=== PATIENT | male | born 1995 | race Asian ===

== ENCOUNTER 2021-02-11 13:55 | Inpatient (IN) | payer OTHER, BC ==
[~2021-02-11] VITALS: Ht 167.6 cm; Wt 102.8 kg
[2021-02-11 14:25] LABS: CLARITY,URINE CLEAR (Clear); GLUCOSE, URINE >=1000 mg/dl (Neg); KETONES,URINE >=80 mg/dl (Neg); LEUKOCYTE ESTERASE ,URINE NEGATIVE (Neg); NITRITES, URINE NEGATIVE (Neg); OCCULT BLOOD,URINE SMALL (Neg); PROTEIN,URINE 100 mg/dl (Neg); UROBILINOGEN,URINE 0.2 E.U/dL (0.2-1.0)
[2021-02-11 14:30] LABS: BASOPHILS # (AUTO) 0.1 X10'3 (0-0.2); BASOPHILS % (AUTO) 0.9 % (0-1); EOSINOPHILS # (AUTO) 0.1 X10'3 (0-0.9); EOSINOPHILS % (AUTO) 0.5 % (0-6); HEMATOCRIT 49.7 % (42.0-52.0); HEMOGLOBIN 17.4 g/dl (14.0-17.9); LYMPHOCYTES # (AUTO) 2.2 X10'3 (1.1-4.8); MEAN CORPUSCULAR HGB CONC 34.9 g/dL (33.0-36.5); MEAN PLATELET VOLUME 11.4 FL (7.4-10.4); MONOCYTES # (AUTO) 0.8 X10'3 (0-0.9); MONOCYTES % (AUTO) 7.1 % (2-12); NEUTROPHILS % (AUTO) 71.5 % (42-75); PLATELET COUNT 278 X10'3 (140-440); RED CELL DISTRIBUTION WIDTH 12.8 % (11.5-14.5); WHITE BLOOD COUNT 11.2 X10'3 (4.5-11.0)
[2021-02-11 14:34] LABS: COLOR,URINE STRAW (Yellow); UA COLLECTION TYPE CLN CATCH MIDSTREAM
[2021-02-11 14:38] LABS: ALBUMIN 3.7 G/DL (3.4-5.0); ALKALINE PHOSPHATASE 136 IU/L (46-116); ANION GAP 24 (8-16); BILIRUBIN,TOTAL 0.9 MG/DL (0.1-1.0); BLOOD UREA NITROGEN 14 MG/DL (7-18); BUN/CREATININE RATIO 10.1 (5.4-32.0); CALCIUM 9.3 MG/DL (8.5-10.1); CHLORIDE 87 MMOL/L (99-107); CREATININE 1.38 MG/DL (0.60-1.10); LIPASE 118 U/L (73-393); SODIUM 123 MMOL/L (135-145); eGFR 64 ML/MIN
[2021-02-11 14:41] LABS: BACTERIA,URINE FEW /HPF (Neg); RBC,URINE 0-2 /HPF (0-2); SQUAMOUS EPITHELIAL CELL,UR NONE SEEN /LPF (FEW); WBC,URINE 0-4 /HPF (0-4)
[2021-02-11 14:42] LABS: ALBUMIN/GLOBULIN RATIO 0.6 (1.1-1.5); POTASSIUM 4.5 MMOL/L (3.5-5.1); TOTAL PROTEIN 9.6 G/DL (6.4-8.2)
[2021-02-11 14:46] LABS: GLUCOSE 487 MG/DL (70-104); TOTAL CARBON DIOXIDE 12.4 MMOL/L (24-32)
[2021-02-11 15:07] LABS: LARGE PLATELETS FEW; PLATELET ESTIMATE NORMAL
[2021-02-11] MEDS ORDERED: normal saline 1000ml 1,000 ML IV ONE ×2 (15:10)
[2021-02-11 15:15] LABS: ABG BASE EXCESS -15.9 mmol/L (-2.0-2.0); ABG HCO3 8.3 mmol/L (22.0-26.0); ABG OXYGEN SATURATION 97.9 % (94-97); ABG PCO2 (T) 18.9 mmHg (35.0-48.0); ABG PO2 (T) 109.9 mmHg (75.0-100.0); ALLEN'S TEST POSITIVE; FCOHb 0.3 % (0.0-3.9); FMetHb 0.4 % (0.0-1.5); FO2Hb 97.2 % (94-97); TOTAL HEMOGLOBIN 17.8 G/dl (14.0-18.0)
[2021-02-11] MEDS ORDERED: Neutra Phos packet PO PRN ×2 (15:20→22:00)
[2021-02-11] MEDS ORDERED: sodium phosphate inj. 15 MMOL in dextrose 5%-water 250 ML IV PRN ×2 (15:20→22:00)
[2021-02-11] MEDS ORDERED: sodium bicarbonate (8.4%) inj. 100 MEQ in dextrose 5% water 500ml 500 ML IV PRN (15:20)
[2021-02-11] MEDS ORDERED: potassium Cl 20 mEq SR tablet PO PRN ×4 (15:20→16:30)
[2021-02-11] MEDS ORDERED: sodium bicarbonate (8.4%) inj. 50 MEQ in dextrose 5% water 500ml 250 ML IV PRN (15:20)
[2021-02-11] MEDS ORDERED: sodium phosphate inj. 30 MMOL in dextrose 5%-water 250 ML IV PRN ×2 (15:20→22:00)
[2021-02-11] MEDS ORDERED: insulin regular, human 10 units/0.1 ml syringe IV PRN (15:20)
[2021-02-11] MEDS ORDERED: potassium Cl 40MEQ/1/2NS 520ml 520 ML IV PRN ×2 (15:20)
[2021-02-11] MEDS ORDERED: NO HOME MEDS (16:01)
[2021-02-11 16:06] LABS: HEMOGLOBIN A1C 10.9 % (4.5-6.2)
[2021-02-11] MEDS: Insulin Reg/NS 100units/100mL 100 ML IV SCH (16:09)
[2021-02-11] MEDS: normal saline 1000ml 1,000 ML IV SCH ×3 (16:12→23:20)
[2021-02-11 16:20] LABS: ALANINE AMINOTRANSFERASE 106 U/L (12-78); ASPARTATE AMINO TRANSFERASE 46 U/L (10-37)
[2021-02-11] MEDS ORDERED: morphine 2 MG/ML inj. syringe IV PRN ×2 (16:30)
[2021-02-11] MEDS ORDERED: magnesium Cl slow-release 64mg tablet PO PRN (16:30)
[2021-02-11] MEDS ORDERED: magnesium hydroxide 30ml (MOM) UD suspension PO PRN (16:30)
[2021-02-11] MEDS ORDERED: diphenhydrAMINE 25mg capsule PO PRN (16:30)
[2021-02-11] MEDS ORDERED: bisacodyl 10mg suppository rectal RC PRN (16:30)
[2021-02-11] MEDS ORDERED: mag hydrox/Alum hydrox/simeth 30ml oral suspension PO PRN (16:30)
[2021-02-11] MEDS ORDERED: magnesium 4gm in 100ml NS 100 ML IV PRN (16:30)
[2021-02-11] MEDS ORDERED: acetaminophen 325mg tablet PO PRN ×2 (16:30)
[2021-02-11] MEDS ORDERED: magnesium 2GM in 50ml NS 50 ML IV PRN (16:30)
[2021-02-11] MEDS ORDERED: HYDROcodone/acetaminophen 5mg/325mg tablet PO PRN (16:30)
[2021-02-11 17:19] LABS: PHOSPHORUS 3.2 MG/DL (2.3-4.5)
--- NOTE | 2021-02-11 17:34 | NUR ---
paged Dr. Guardado regarding patient's bg 371mg/dl.
--- NOTE | 2021-02-11 17:45 | NUR ---
sTILL OK TO GIVE 10 UNITS IV OF REGULAR INSULIN PER DR. SYED.
[2021-02-11] MEDS ORDERED: lisinopril 20mg tablet PO STA (17:58)
--- NOTE | 2021-02-11 17:59 | NUR ---
PATIENT HYPERTENSIVE DR. SYED AT BEDSIDE,ORDERED LISINOPRIL 20MG , FIRST DOSE NOW.
[2021-02-11] MEDS: potassium CL 20mEq in D5-1/2NS 1,000 ML IV PRN (19:22)
[2021-02-11 19:49] LABS: URINE AMPHETAMINE SCREEN NEGATIVE (Neg); URINE BARBITUATE SCREEN NEGATIVE (Neg); URINE BENZODIAZEPINES SCREEN NEGATIVE (Neg); URINE CANNABINOID SCREEN NEGATIVE (Neg); URINE COCAINE SCREEN NEGATIVE (Neg); URINE METHADONE SCREEN NEGATIVE (Neg); URINE OPIATE SCREEN NEGATIVE (Neg); URINE PHENCYCLIDINE SCREEN NEGATIVE (Neg)
[2021-02-11] MEDS: K and/or MAG REPLACEMENT MC SCH (20:00)
[2021-02-11] MEDS ORDERED: K and/or MAG REPLACEMENT MC SCH (20:00)
[2021-02-11 20:21] LABS: ALBUMIN 3.1 G/DL (3.4-5.0); ALBUMIN/GLOBULIN RATIO 0.7 (1.1-1.5); ALKALINE PHOSPHATASE 111 IU/L (46-116); BILIRUBIN,TOTAL 0.6 MG/DL (0.1-1.0); BLOOD UREA NITROGEN 10 MG/DL (7-18); BUN/CREATININE RATIO 8.7 (5.4-32.0); CALCIUM 7.8 MG/DL (8.5-10.1); CREATININE 1.15 MG/DL (0.60-1.10); TOTAL PROTEIN 7.8 G/DL (6.4-8.2); eGFR 79 ML/MIN
[2021-02-11 20:58] LABS: ALANINE AMINOTRANSFERASE 92 U/L (12-78); ANION GAP 22 (8-16); ASPARTATE AMINO TRANSFERASE 35 U/L (10-37); CHLORIDE 99 MMOL/L (99-107); GLUCOSE 230 MG/DL (70-104); PHOSPHORUS 2.2 MG/DL (2.3-4.5); SODIUM 133 MMOL/L (135-145)
[2021-02-11 20:59] LABS: POTASSIUM 3.6 MMOL/L (3.5-5.1)
[2021-02-11 21:03] LABS: TOTAL CARBON DIOXIDE 12.2 MMOL/L (24-32)
[2021-02-11] MEDS ORDERED: NORepinephrine inj. 8 MG in dextrose 5%-water 242 ML IV SCH (21:25)
[2021-02-11] MEDS ORDERED: NORepinephrine 8mg/ 250ml NS 250 ML IV SCH (21:30)
--- NOTE | 2021-02-11 21:45 | NUR ---
DR HORVATH IN PT'S ROOM AFTER I REPORTED PT'S LOW BP. DR HORVATH GAVE VERBAL ORDER FOR LEVOPHED WITH A GOAL OF 100/60.
[2021-02-11 22:16] LABS: CREATINE KINASE 103 U/L (39-308)
[2021-02-11] MEDS: ondansetron/PF 4mg/2ml inj IV PRN (22:28)
--- NOTE | 2021-02-11 22:33 | NUR ---
pt became nauseas. pt medicated.
[2021-02-11] MEDS: docusate sod 100mg capsule PO SCH (23:29)
[2021-02-11] MEDS: heparin, porcine 5000 units/ml vial SQ SCH (23:31)
[2021-02-12 00:47] LABS: ALBUMIN 2.1 G/DL (3.4-5.0); ALBUMIN/GLOBULIN RATIO 0.7 (1.1-1.5); ALKALINE PHOSPHATASE 74 IU/L (46-116); BILIRUBIN,TOTAL 0.5 MG/DL (0.1-1.0); BLOOD UREA NITROGEN 12 MG/DL (7-18); BUN/CREATININE RATIO 10.3 (5.4-32.0); CREATININE 1.17 MG/DL (0.60-1.10); GLUCOSE 293 MG/DL (70-104); TOTAL PROTEIN 5.3 G/DL (6.4-8.2); eGFR 77 ML/MIN
[2021-02-12 01:15] LABS: ALANINE AMINOTRANSFERASE 57 U/L (12-78); ANION GAP 19 (8-16); ASPARTATE AMINO TRANSFERASE 22 U/L (10-37); CHLORIDE 109 MMOL/L (99-107); SODIUM 138 MMOL/L (135-145)
[2021-02-12 01:20] LABS: POTASSIUM 2.9 MMOL/L (3.5-5.1); TOTAL CARBON DIOXIDE 9.9 MMOL/L (24-32)
[2021-02-12 01:21] LABS: CALCIUM 5.8 MG/DL (8.5-10.1)
--- NOTE | 2021-02-12 01:39 | NUR ---
CALLED DR HORVATH CONCERNING PT'S NEW CRITICAL RESULTS. ORDERS TO REPLACE POTASSIUM PER PROTOCOL, GIVE 2 GRAMS OF GLUCONATE CALCIUM IV. ONCE POTASSIUM IS ABOVE 3.5, INCREASE INSULIN PER PROTOCOL.
[2021-02-12] MEDS ORDERED: calcium gluconate inj. 2 GM in normal saline 100ml IV soln 100 ML IV ONE (01:50)
[2021-02-12] MEDS: potassium CL 10mEq/100ml bag 100 ML IV PRN ×3 (02:00→04:40)
[2021-02-12] MEDS: CALCIUM GLUC 1gm/50ml NACL,iso 50 ML IV SCH ×2 (02:55→03:47)
--- NOTE | 2021-02-12 03:07 | NUR ---
CONFIRMED WITH PHARMACY THAT POTASSIUM REPLACEMENT DOSE IS CORRECT.
[2021-02-12] MEDS: normal saline 1000ml 1,000 ML IV SCH ×2 (03:20→07:20)
[2021-02-12] MEDS: potassium CL 20mEq in D5-1/2NS 1,000 ML IV PRN (03:53)
[2021-02-12] MEDS: Insulin Reg/NS 100units/100mL 100 ML IV SCH (04:51)
--- NOTE | 2021-02-12 05:04 | NUR ---
ATTEMPTED TO CALL AND GIVE REPORT.
--- NOTE | 2021-02-12 05:30 | NUR ---
REPORT HAS BEEN GIVEN. PT IN PCU NOW.
[2021-02-12 05:47] LABS: BASOPHILS # (AUTO) 0.1 X10'3 (0-0.2); BASOPHILS % (AUTO) 0.5 % (0-1); EOSINOPHILS % (AUTO) 0.2 % (0-6); HEMATOCRIT 41.8 % (42.0-52.0); HEMOGLOBIN 14.2 g/dl (14.0-17.9); LYMPHOCYTES # (AUTO) 1.5 X10'3 (1.1-4.8); LYMPHOCYTES % (AUTO) 11.8 % (21-51); MEAN CORPUSCULAR HEMOGLOBIN 28.3 PG (27.0-31.0); MEAN CORPUSCULAR VOLUME 83.1 FL (78-98); MONOCYTES # (AUTO) 1.1 X10'3 (0-0.9); MONOCYTES % (AUTO) 8.5 % (2-12); NEUTROPHILS # (AUTO) 10.2 X10'3 (1.8-7.7); PLATELET COUNT 192 X10'3 (140-440); RED BLOOD COUNT 5.03 X10'6 (4.70-6.10); RED CELL DISTRIBUTION WIDTH 12.9 % (11.5-14.5)
[2021-02-12 06:00] VITALS: BP 104/69
[2021-02-12 06:19] LABS: LARGE PLATELETS FEW; PLATELET ESTIMATE NORMAL
[2021-02-12 06:29] LABS: ALANINE AMINOTRANSFERASE 67 U/L (12-78); ALBUMIN 2.8 G/DL (3.4-5.0); ALBUMIN/GLOBULIN RATIO 0.6 (1.1-1.5); ALKALINE PHOSPHATASE 97 IU/L (46-116); ANION GAP 19 (8-16); BILIRUBIN,TOTAL 0.5 MG/DL (0.1-1.0); BLOOD UREA NITROGEN 16 MG/DL (7-18); BUN/CREATININE RATIO 9.6 (5.4-32.0); CHLORIDE 99 MMOL/L (99-107); CHOL/HDL RATIO 11.7 (0.00-4.99); CHOLESTEROL 315 MG/DL (0-200); CREATININE 1.67 MG/DL (0.60-1.10); GLUCOSE 258 MG/DL (70-104); HDL CHOLESTEROL 27 MG/DL (35-60); LDL CHOLESTEROL 61 MG/DL (50-100); MAGNESIUM 2.1 MG/DL (1.5-2.4); SODIUM 130 MMOL/L (135-145); TOTAL PROTEIN 7.3 G/DL (6.4-8.2); eGFR 51 ML/MIN
[2021-02-12 06:33] LABS: HIV ANTIBODY 1&2 RAPID NON-REACTIVE (Neg)
[2021-02-12 06:53] LABS: POTASSIUM 4.1 MMOL/L (3.5-5.1); TRIGLYCERIDES 1491 MG/DL (20-135)
[2021-02-12 07:00] LABS: ASPARTATE AMINO TRANSFERASE 19 U/L (10-37)
[2021-02-12 07:07] LABS: TOTAL CARBON DIOXIDE 11.9 MMOL/L (24-32)
[2021-02-12 07:08] LABS: CALCIUM 16.2 MG/DL (8.5-10.1)
--- NOTE | 2021-02-12 07:17 | NUR ---
PAGER ID: [phone] MESSAGE: [id number] Kai Joshua- Calcium is 16.2. Rajani [id number]
[2021-02-12 07:50] VITALS: BP 97/45
[2021-02-12] MEDS ORDERED: lisinopril 20mg tablet PO SCH (08:00)
[2021-02-12] MEDS: K and/or MAG REPLACEMENT MC SCH ×2 (08:00→20:00)
[2021-02-12] MEDS: docusate sod 100mg capsule PO SCH ×2 (08:00→19:55)
[2021-02-12] MEDS: heparin, porcine 5000 units/ml vial SQ SCH ×2 (08:41→19:56)
[2021-02-12 09:54] LABS: ALBUMIN 2.9 G/DL (3.4-5.0); ANION GAP 16 (8-16); BLOOD UREA NITROGEN 17 MG/DL (7-18); BUN/CREATININE RATIO 10.8 (5.4-32.0); CHLORIDE 101 MMOL/L (99-107); CREATININE 1.58 MG/DL (0.60-1.10); GLUCOSE 203 MG/DL (70-104); PHOSPHORUS 2.4 MG/DL (2.3-4.5); SODIUM 133 MMOL/L (135-145); TOTAL CARBON DIOXIDE 15.7 MMOL/L (24-32); eGFR 55 ML/MIN
[2021-02-12 09:55] LABS: POTASSIUM 4.1 MMOL/L (3.5-5.1)
--- NOTE | 2021-02-12 10:23 | NUR ---
Initial: Per ED report pt presented with c/o increased thirst and urination with nausea and weakness over the past three weeks and was sent over from [facility] d/t BG levels abnormally in the 400s. Current A1c is 10.9%. Per ED report pt with no PMH DM. Pt admit for new onset T2DM and DKA. Uncertain if pt has received formal dx of DM by physician at this time. H&P pending. Pt would benefit from DM education once stable following official DM dx by physician. Noted pt with abnormal lipid panel with TG 1491, CHOL 315, and HDL 27. Pt would benefit from heart healthy education in addition to DM education. Pt currently NPO. Recommend diet advancement to low fat CHO controlled as medically indicated given low serum Na at this time which is being replaced. Will continue to follow closely. Recommendations: 1) Advance to low fat CHO controlled diet as medically indicated 2) Bowel care PRN 3) Scaled weight this admit; weekly scaled weights thereafter 4) DM education once stable following official DM dx by physician, A1c 10.9% 5) Heart healthy nutrition therapy education; TG 1491, CHOL 315, and HDL 27 Addendum: 02/12/21 at [address] Amended: Links added.
[2021-02-12] MEDS ORDERED: dextrose ORAL solution 15 GM/59 ML bottle PO PRN ×2 (10:30)
[2021-02-12] MEDS ORDERED: dextrose 50%-water 50ml dispensing syringe IV PRN ×2 (10:30)
[2021-02-12] MEDS ORDERED: sodium bicarbonate (8.4%) inj. 100 MEQ in sodium chloride 0.45% 900 ML IV SCH (10:30)
[2021-02-12] MEDS ORDERED: MESSAGE TO PHARMACY PO ONE (10:30)
[2021-02-12] MEDS ORDERED: glucagon, human recombinant 1mg kit SUBCUT PRN (10:30)
--- NOTE | 2021-02-12 10:30 | NUR ---
Orthostatic BP performed. Laying 100/70; Sitting 96/65; Standing patient got dizzy and weak, so unable to perform standing BP. Dr. Quinteros made aware. Addendum: 02/12/21 at 1043 by Rajani Felton RN Wrong patient
[2021-02-12 11:00] VITALS: BP 100/69
--- NOTE | 2021-02-12 11:36 | NUR ---
Confirmed with Dr. Guardado to stop insulin drip as of now
[2021-02-12 14:00] LABS: BASOPHILS # (AUTO) 0.1 X10'3 (0-0.2); BASOPHILS % (AUTO) 1.1 % (0-1); EOSINOPHILS # (AUTO) 0.1 X10'3 (0-0.9); EOSINOPHILS % (AUTO) 0.6 % (0-6); HEMATOCRIT 40.8 % (42.0-52.0); HEMOGLOBIN 13.9 g/dl (14.0-17.9); LYMPHOCYTES # (AUTO) 1.8 X10'3 (1.1-4.8); LYMPHOCYTES % (AUTO) 18.4 % (21-51); MEAN CORPUSCULAR HEMOGLOBIN 28.4 PG (27.0-31.0); MEAN CORPUSCULAR HGB CONC 34.1 g/dL (33.0-36.5); MEAN CORPUSCULAR VOLUME 83.5 FL (78-98); MEAN PLATELET VOLUME 11.2 FL (7.4-10.4); MONOCYTES # (AUTO) 1.1 X10'3 (0-0.9); MONOCYTES % (AUTO) 10.9 % (2-12); NEUTROPHILS # (AUTO) 6.7 X10'3 (1.8-7.7); PLATELET COUNT 185 X10'3 (140-440); RED BLOOD COUNT 4.89 X10'6 (4.70-6.10); RED CELL DISTRIBUTION WIDTH 12.8 % (11.5-14.5); WHITE BLOOD COUNT 9.6 X10'3 (4.5-11.0)
[2021-02-12] MEDS: insulin Lispro (HumaLOG) vial - multi-dose SQ SCH ×4 (14:20→23:13)
[2021-02-12 14:21] LABS: ALBUMIN 2.8 G/DL (3.4-5.0); ANION GAP 17 (8-16); BLOOD UREA NITROGEN 18 MG/DL (7-18); BUN/CREATININE RATIO 13.6 (5.4-32.0); CALCIUM 8.7 MG/DL (8.5-10.1); CHLORIDE 101 MMOL/L (99-107); CREATININE 1.32 MG/DL (0.60-1.10); GLUCOSE 291 MG/DL (70-104); PHOSPHORUS 2.8 MG/DL (2.3-4.5); SODIUM 131 MMOL/L (135-145); eGFR 67 ML/MIN
[2021-02-12 14:28] LABS: POTASSIUM 4.3 MMOL/L (3.5-5.1)
[2021-02-12 14:29] LABS: TOTAL CARBON DIOXIDE 12.9 MMOL/L (24-32)
--- NOTE | 2021-02-12 14:45 | NUR ---
PAGER ID: [phone] MESSAGE: [id number] Josiane Kai- Co2 12.9 at 1310. Bicarb infusion started at 1230. Rajani [id number]
[2021-02-12 15:00] VITALS: BP 110/71
[2021-02-12 15:34] LABS: ALBUMIN 2.8 G/DL (3.4-5.0); ANION GAP 17 (8-16); BLOOD UREA NITROGEN 18 MG/DL (7-18); CALCIUM 8.6 MG/DL (8.5-10.1); CHLORIDE 100 MMOL/L (99-107); CREATININE 1.38 MG/DL (0.60-1.10); GLUCOSE 330 MG/DL (70-104); SODIUM 131 MMOL/L (135-145); eGFR 64 ML/MIN
[2021-02-12 15:42] LABS: POTASSIUM 4.4 MMOL/L (3.5-5.1)
[2021-02-12 15:43] LABS: TOTAL CARBON DIOXIDE 14.5 MMOL/L (24-32)
[2021-02-12] MEDS: ondansetron/PF 4mg/2ml inj IV PRN (15:56)
--- NOTE | 2021-02-12 16:05 | NUR ---
PAGER ID: [phone] MESSAGE: [id number] Kai Joshua- [facility] [place] .5. Rajani [id number]
[2021-02-12] MEDS: pantoprazole IV 40 MG in dextrose 5%-water 100 ML IV SCH ×2 (17:40→21:39)
[2021-02-12 18:00] VITALS: BP 126/69
--- NOTE | 2021-02-12 18:41 | NUR ---
Problems reprioritized. Patient report given, questions answered & plan of care reviewed with Peggy CUELLO.
--- NOTE | 2021-02-12 18:57 | NUR ---
Patient in room PCU 3024. I have received report from Rajani CUELLO and had the opportunity to ask questions and assume patient care.
[2021-02-12 19:35] LABS: BASOPHILS # (AUTO) 0.1 X10'3 (0-0.2); BASOPHILS % (AUTO) 1.2 % (0-1); EOSINOPHILS # (AUTO) 0.1 X10'3 (0-0.9); HEMATOCRIT 40.1 % (42.0-52.0); HEMOGLOBIN 13.9 g/dl (14.0-17.9); LYMPHOCYTES # (AUTO) 1.6 X10'3 (1.1-4.8); MEAN CORPUSCULAR HEMOGLOBIN 28.4 PG (27.0-31.0); MEAN CORPUSCULAR HGB CONC 34.6 g/dL (33.0-36.5); MEAN CORPUSCULAR VOLUME 82.2 FL (78-98); MEAN PLATELET VOLUME 10.8 FL (7.4-10.4); MONOCYTES # (AUTO) 0.7 X10'3 (0-0.9); MONOCYTES % (AUTO) 8.7 % (2-12); NEUTROPHILS # (AUTO) 5.2 X10'3 (1.8-7.7); NEUTROPHILS % (AUTO) 68.1 % (42-75); PLATELET COUNT 181 X10'3 (140-440); RED BLOOD COUNT 4.88 X10'6 (4.70-6.10); RED CELL DISTRIBUTION WIDTH 13.1 % (11.5-14.5); WHITE BLOOD COUNT 7.7 X10'3 (4.5-11.0)
[2021-02-12 19:47] LABS: ALBUMIN 2.7 G/DL (3.4-5.0); ANION GAP 16 (8-16); BLOOD UREA NITROGEN 16 MG/DL (7-18); BUN/CREATININE RATIO 11.7 (5.4-32.0); CALCIUM 8.5 MG/DL (8.5-10.1); CHLORIDE 98 MMOL/L (99-107); CREATININE 1.37 MG/DL (0.60-1.10); GLUCOSE 359 MG/DL (70-104); PHOSPHORUS 2.1 MG/DL (2.3-4.5); SODIUM 130 MMOL/L (135-145); TOTAL CARBON DIOXIDE 16.5 MMOL/L (24-32); eGFR 64 ML/MIN
[2021-02-12 19:48] LABS: POTASSIUM 3.8 MMOL/L (3.5-5.1)
[2021-02-12] MEDS: HYDROcodone/acetaminophen 10/325mg tab PO PRN ×2 (19:56→23:51)
[2021-02-12 22:00] VITALS: BP 121/69
[2021-02-12] MEDS: insulin glargine (Lantus) pen - multi-dose SQ SCH (23:15)
[2021-02-13] MEDS: sodium bicarbonate (8.4%) inj. 100 MEQ in sodium chloride 0.45% 1,000 ML IV SCH ×3 (01:10→12:39)
[2021-02-13 02:00] VITALS: BP 121/65
[2021-02-13 07:00] VITALS: BP 117/67
[2021-02-13 07:09] LABS: BASOPHILS # (AUTO) 0.1 X10'3 (0-0.2); BASOPHILS % (AUTO) 0.9 % (0-1); EOSINOPHILS # (AUTO) 0.1 X10'3 (0-0.9); EOSINOPHILS % (AUTO) 1.7 % (0-6); HEMATOCRIT 39.3 % (42.0-52.0); HEMOGLOBIN 13.7 g/dl (14.0-17.9); LYMPHOCYTES # (AUTO) 2.5 X10'3 (1.1-4.8); LYMPHOCYTES % (AUTO) 36.9 % (21-51); MEAN CORPUSCULAR HEMOGLOBIN 28.9 PG (27.0-31.0); MEAN CORPUSCULAR HGB CONC 34.8 g/dL (33.0-36.5); MEAN CORPUSCULAR VOLUME 82.8 FL (78-98); MEAN PLATELET VOLUME 11.1 FL (7.4-10.4); MONOCYTES # (AUTO) 0.7 X10'3 (0-0.9); MONOCYTES % (AUTO) 10.6 % (2-12); NEUTROPHILS # (AUTO) 3.5 X10'3 (1.8-7.7); NEUTROPHILS % (AUTO) 49.9 % (42-75); PLATELET COUNT 175 X10'3 (140-440); RED BLOOD COUNT 4.75 X10'6 (4.70-6.10); WHITE BLOOD COUNT 6.9 X10'3 (4.5-11.0)
[2021-02-13 07:43] LABS: TOTAL CARBON DIOXIDE 16.6 MMOL/L (24-32)
[2021-02-13] MEDS: pantoprazole IV 40 MG in dextrose 5%-water 100 ML IV SCH ×2 (07:50→20:47)
[2021-02-13] MEDS: lisinopril 5mg tablet PO SCH (07:50)
[2021-02-13] MEDS: docusate sod 100mg capsule PO SCH ×2 (07:50→20:47)
[2021-02-13] MEDS: heparin, porcine 5000 units/ml vial SQ SCH ×2 (07:51→20:47)
--- NOTE | 2021-02-13 07:51 | NUR ---
Problems reprioritized. Patient report given, questions answered & plan of care reviewed with Nicolasa CUELLO.
[2021-02-13 07:54] LABS: LARGE PLATELETS FEW; PLATELET ESTIMATE NORMAL; ROULEAUX 1+
[2021-02-13] MEDS: K and/or MAG REPLACEMENT MC SCH ×2 (08:00→20:00)
[2021-02-13] MEDS: insulin Lispro (HumaLOG) vial - multi-dose SQ SCH ×3 (08:44→20:46)
[2021-02-13 08:51] LABS: ALANINE AMINOTRANSFERASE 73 U/L (12-78); ALBUMIN 2.8 G/DL (3.4-5.0); ALBUMIN/GLOBULIN RATIO 0.7 (1.1-1.5); ALKALINE PHOSPHATASE 89 IU/L (46-116); ANION GAP 17 (8-16); ASPARTATE AMINO TRANSFERASE 31 U/L (10-37); BILIRUBIN,TOTAL 0.4 MG/DL (0.1-1.0); BLOOD UREA NITROGEN 14 MG/DL (7-18); BUN/CREATININE RATIO 13.2 (5.4-32.0); CALCIUM 8.9 MG/DL (8.5-10.1); CHLORIDE 100 MMOL/L (99-107); CREATININE 1.06 MG/DL (0.60-1.10); GLUCOSE 329 MG/DL (70-104); MAGNESIUM 1.9 MG/DL (1.5-2.4); POTASSIUM 3.7 MMOL/L (3.5-5.1); SODIUM 134 MMOL/L (135-145); eGFR 87 ML/MIN
[2021-02-13 11:00] VITALS: BP 113/70
--- NOTE | 2021-02-13 11:30 | NUR ---
Diabetic teaching done, instructed patient on how to draw up and administer insulin. patient able to do proficient return demonstration by drawing up correct amount of insulin and administer it to himself..
[2021-02-13] MEDS: HYDROcodone/acetaminophen 10/325mg tab PO PRN (12:46)
[2021-02-13 15:00] VITALS: BP 106/54
[2021-02-13 20:00] VITALS: BP 101/53
[2021-02-13] MEDS: insulin glargine (Lantus) pen - multi-dose SQ SCH (21:00)
[2021-02-14 02:00] VITALS: BP 118/77
[2021-02-14] MEDS: sodium bicarbonate (8.4%) inj. 100 MEQ in sodium chloride 0.45% 1,000 ML IV SCH (05:28)
[2021-02-14 06:44] LABS: BASOPHILS % (AUTO) 0.5 % (0-1); EOSINOPHILS # (AUTO) 0.1 X10'3 (0-0.9); EOSINOPHILS % (AUTO) 1.9 % (0-6); HEMOGLOBIN 12.8 g/dl (14.0-17.9); LYMPHOCYTES # (AUTO) 2.5 X10'3 (1.1-4.8); LYMPHOCYTES % (AUTO) 36.7 % (21-51); MEAN CORPUSCULAR HEMOGLOBIN 28.5 PG (27.0-31.0); MEAN CORPUSCULAR HGB CONC 34.5 g/dL (33.0-36.5); MEAN CORPUSCULAR VOLUME 82.5 FL (78-98); MEAN PLATELET VOLUME 11.1 FL (7.4-10.4); MONOCYTES # (AUTO) 0.7 X10'3 (0-0.9); MONOCYTES % (AUTO) 10.5 % (2-12); NEUTROPHILS # (AUTO) 3.5 X10'3 (1.8-7.7); NEUTROPHILS % (AUTO) 50.4 % (42-75); PLATELET COUNT 158 X10'3 (140-440); RED BLOOD COUNT 4.48 X10'6 (4.70-6.10); RED CELL DISTRIBUTION WIDTH 12.7 % (11.5-14.5); WHITE BLOOD COUNT 6.9 X10'3 (4.5-11.0)
[2021-02-14 06:57] LABS: TOTAL CARBON DIOXIDE 24.8 MMOL/L (24-32)
[2021-02-14 07:00] VITALS: BP 99/59
[2021-02-14 07:35] LABS: ALANINE AMINOTRANSFERASE 81 U/L (12-78); ALBUMIN 2.7 G/DL (3.4-5.0); ALBUMIN/GLOBULIN RATIO 0.7 (1.1-1.5); ALKALINE PHOSPHATASE 84 IU/L (46-116); ANION GAP 12 (8-16); ASPARTATE AMINO TRANSFERASE 43 U/L (10-37); BILIRUBIN,TOTAL 0.3 MG/DL (0.1-1.0); BLOOD UREA NITROGEN 9 MG/DL (7-18); BUN/CREATININE RATIO 10.2 (5.4-32.0); CALCIUM 8.7 MG/DL (8.5-10.1); CHLORIDE 99 MMOL/L (99-107); CREATININE 0.88 MG/DL (0.60-1.10); GLUCOSE 207 MG/DL (70-104); MAGNESIUM 1.8 MG/DL (1.5-2.4); POTASSIUM 3.1 MMOL/L (3.5-5.1); SODIUM 136 MMOL/L (135-145); TOTAL PROTEIN 6.5 G/DL (6.4-8.2); eGFR > 90 ML/MIN
[2021-02-14] MEDS: heparin, porcine 5000 units/ml vial SQ SCH (07:37)
[2021-02-14] MEDS: docusate sod 100mg capsule PO SCH (07:37)
[2021-02-14] MEDS: pantoprazole IV 40 MG in dextrose 5%-water 100 ML IV SCH (07:37)
[2021-02-14] MEDS: lisinopril 5mg tablet PO SCH (07:40)
[2021-02-14] MEDS: K and/or MAG REPLACEMENT MC SCH (08:00)
[2021-02-14] MEDS: insulin Lispro (HumaLOG) vial - multi-dose SQ SCH ×2 (08:56→13:21)
[2021-02-14] MEDS ORDERED: PANT-47 PO (09:56)
[2021-02-14] MEDS ORDERED: LANTUS SQ (09:56)
[2021-02-14 11:00] VITALS: BP 139/84
--- NOTE | 2021-02-14 13:50 | NUR ---
patient discharged home discharged home, discharge instructions and new medications explained to patient, patient able to self administer insulin proficiently, self administered am and noon insulin. IV's discontinued, catheter intact. Instructed to follow up at [place] in 1 week. patient walked to [facility] and transported home by in personal vehicle. All personal belongings sent home with patient.
[2021-02-15 11:12] LABS: HBSAG SCREEN Negative (Negative); HEP A AB, IGM Negative (Negative); HEPATITIS C ANTIBODY <0.1 s/co ratio (0.0-0.9)
== END 2021-02-14 13:47 | disposition home or self-care (01) | DRG 638 ==
LOC: ER 13:55 → ED HOLD 16:32 → EDBEDREQ 20:59 → PCU 3S 02-12 07:08
PROVIDERS: ADMIT Family Medicine; ATTEND Family Medicine
DX: E10.10 Type 1 diabetes mellitus with ketoacidosis without coma (principal); N17.9 Acute kidney failure, unspecified; K21.9 Gastro-esophageal reflux disease without esophagitis; R74.01 Elevation of levels of liver transaminase levels; Z20.822 Contact with and (suspected) exposure to COVID-19; K29.70 Gastritis, unspecified, without bleeding; I10 Essential (primary) hypertension; E86.0 Dehydration; F17.200 Nicotine dependence, unspecified, uncomplicated; Z71.6 Tobacco abuse counseling
CPT/HCPCS: 36415; 36600; 71045; 74176; 76700; 80048; 80053; 80061; 80305; 81001; 82009; 82550; 82803; 82948; 83036; 83605; 83690; 83735; 83880; 84100; 84145; 84443; 85008; 85018; 85025; 86703; 86705; 86706; 86709; 86803; 87040; 87081; 87340; 87635; 96365; 99285; C9113; G0378; J0610; J1644; J1815; J2405; J3480; J3490; J7030; J7060